=== PATIENT | male | born 1995 | race Caucasian/White ===

== ENCOUNTER 2019-04-19 20:29 | Emergency (ER) | payer SELFPAY ==
[~2019-04-19] VITALS: Ht 172.7 cm; Wt 61.7 kg
[2019-04-19] MEDS ORDERED: IV NORMAL SALINE 1,000ML 1,000 ML IV ONE (20:45)
[2019-04-19] MEDS ORDERED: ONDANSETRON PF 4 MG/2 ML VIAL. IV ONE ×2 (20:45→21:00)
[2019-04-19] MEDS ORDERED: LOPERAMIDE 2 MG CAPSULE PO ONE (21:00)
--- NOTE | 2019-04-19 21:04 | PHYS DOC ---
Past History Past Medical History: No Pertinent History Past Surgical History: No Surgical History Alcohol Use: None Drug Use: None Adult General Chief Complaint Chief Complaint: NAUSEA/VOMITING/DIARRHEA HPI HPI 23-year-old male presents with sudden onset of nausea, vomiting, and diarrhea. This started a couple hours prior to arrival. The patient is concerned because he is never had such violent vomiting and diarrhea. He is concerned about dehydration. The patient has been eating food at a local homeless [facility] and started gets sick after eating a meal. His brother was also sick and went to another hospital earlier today and was just diagnosed with dehydration. The patient and his family are unsure if anyone else usp that is sick. Believe there was a long delay with food sitting out. I cannot be sure. Patient is unable to keep down any liquids or solids. He had both vomiting and diarrhea in the ED. He has some diffuse periumbilical pain that started after the vomiting. He denies blood in his emesis or stool. Review of Systems Review of Systems Constitutional: Denies fever or chills [] Eyes: Denies change in visual acuity, redness, or eye pain [] HENT: Denies nasal congestion or sore throat [] Respiratory: Denies cough or shortness of breath [] Cardiovascular: No additional information not addressed in HPI [] GI: abdominal pain, nausea, vomiting, diarrhea [] : Denies dysuria or hematuria [] Musculoskeletal: Denies back pain or joint pain [] Integument: Denies rash or skin lesions [] Neurologic: Denies headache, focal weakness or sensory changes [] Endocrine: Denies polyuria or polydipsia [] All other systems were reviewed and found to be within normal limits, except as documented in this note. Current Medications Current Medications Current Medications Medications (Trade) Dose Ordered Sig/Jemima Start Time Stop Time Status Last Admin Dose Admin Loperamide HCl (Imodium) 4 mg 1X ONCE 04/19/19 21:00 04/19/19 21:01 UNV Ondansetron HCl (Zofran) 4 mg 1X ONCE 04/19/19 20:45 04/19/19 20:54 DC 04/19/19 20:51 4 MG Sodium Chloride 1,000 ml @ 1,000 mls/hr 1X ONCE 04/19/19 20:45 04/19/19 21:44 04/19/19 20:51 1,000 MLS/HR Allergies Allergies Allergies Coded Allergies Type Severity Reaction Last Updated Verified No Known Drug Allergies 04/19/19 No Physical Exam Physical Exam Constitutional: Well developed, well nourished, mild acute distress, non-toxic appearance. [] HENT: Normocephalic, atraumatic, bilateral external ears normal, oropharynx moist, no oral exudates, nose normal. [] Eyes: PERRLA, EOMI, conjunctiva normal, no discharge. [] Neck: Normal range of motion, no tenderness, supple, no stridor. [] Cardiovascular:Heart rate regular rhythm, no murmur [] Lungs & Thorax: Bilateral breath sounds clear to auscultation [] Abdomen: Bowel sounds normal, soft, mild periumbilical tenderness, no masses, no pulsatile masses. [] Skin: Warm, dry, no erythema, no rash. [] Back: No tenderness, no CVA tenderness. [] Extremities: No tenderness, no cyanosis, no clubbing, ROM intact, no edema. [] Neurologic: Alert and oriented X 3, normal motor function, normal sensory function, no focal deficits noted. [] Psychologic: Affect normal, judgement normal, mood normal. [] Current Patient Data Vital Signs Vital Signs Date Time Temp Pulse Resp B/P (MAP) Pulse Ox O2 Delivery O2 Flow Rate FiO2 04/19/19 20:58 99.1 120 16 96 Room Air EKG EKG [] Radiology/Procedures Radiology/Procedures [] Course & Med Decision Making Course & Med Decision Making Pertinent Labs and Imaging studies reviewed. (See chart for details) The patient's labs are unremarkable. He is requiring milligrams Zofran IV as well as 10 mg of Compazine IV for his nausea and vomiting. I've also given 4 mg of loperamide. His diarrhea improved. We've given a liter normal saline. I believe the patient has a viral gastroenteritis though mild food poisoning cannot be excluded. I will discharge him with Zofran and Compazine prescriptions. He is stable for discharge at this time. [] Dragon Disclaimer Dragon Disclaimer This electronic medical record was generated, in whole or in part, using a voice recognition dictation system. Departure Departure: Impression: Primary Impression: Viral gastroenteritis Disposition: HOME, SELF-CARE Condition: STABLE Referrals: PCP,NO (PCP) Patient Instructions: Viral Gastroenteritis, [id number] Scripts Prochlorperazine Maleate (Compazine) 10 Mg Tablet 10 MG PO Q6HRS PRN for VOMITING, #20 TAB Prov: CASSIE NARVAEZ DO 04/19/19 Ondansetron (ONDANSETRON ODT) 4 Mg Tab.rapdis 1 TAB PO PRN Q6-8HRS PRN for VOMITING, #16 TAB Prov: CASSIE NARVAEZ DO 04/19/19 CASSIE NARVAEZ DO Apr 19, 2019 21:04
[2019-04-19 21:12] LABS: BASO % 0 % (0-3); EOS # 0.1 x10^3/uL (0.0-0.7); EOS % 1 % (0-3); HEMATOCRIT 46.2 % (39.0-53.0); HEMOGLOBIN 16.2 g/dL (13.0-17.5); LYMPH # 0.4 x10^3/uL (1.0-4.8); LYMPH % 5 % (24-48); MEAN CORPUSCULAR HEMOGLOBIN 32 pg (25-35); MEAN CORPUSCULAR HGB CONC 35 g/dL (31-37); MEAN CORPUSCULAR VOLUME 91 fL (79-100); MONO # 0.6 x10^3/uL (0.0-1.1); MONO % 7 % (0-9); NEUT % 87 % (31-73); PLATELET COUNT 213 x10^3/uL (140-400); RED CELL DISTRIBUTION WIDTH 13.3 % (11.5-14.5); WHITE BLOOD COUNT 9.1 x10^3/uL (4.0-11.0)
[2019-04-19 21:23] LABS: AMORPHOUS SEDIMENT,UR PRESENT /HPF; BACTERIA,URINE 0 /HPF (0-FEW); BILIRUBIN,URINE NEG (NEG); CLARITY,URINE CLOUDY; COLOR,URINE YELLOW; GLUCOSE,URINE NEG (NEG); NITRITE,URINE NEG (NEG); SQUAMOUS EPITHELIAL CELL,UR OCC /LPF; UROBILINOGEN,URINE 1 mg/dL (0.2 mg/dL)
[2019-04-19 21:25] LABS: ALBUMIN 4.7 g/dL (3.4-5.0); ALBUMIN/GLOBULIN RATIO 1.2 (1.0-1.7); CREATININE 0.9 mg/dL (0.7-1.3); GFR 105.5; POTASSIUM 3.7 mmol/L (3.5-5.1); TOTAL BILIRUBIN 1.1 mg/dL (0.2-1.0); TOTAL PROTEIN 8.6 g/dL (6.4-8.2)
[2019-04-19 21:36] VITALS: BP 135/82
[2019-04-19] MEDS ORDERED: PROCHLORPERAZINE 10 MG/2 ML VIAL. IV ONE (22:15)
[2019-04-19] MEDS ORDERED: ONDA4TAB12 PO (22:18)
[2019-04-19] MEDS ORDERED: PROC10TA57 PO (22:18)
[2019-04-19] MEDS ORDERED: ONDANSETRON 4MG ODT 4TABLET STARTPACK. PO ONE (22:30)
== END 2019-04-19 22:42 | disposition home or self-care (01) ==
LOC: ER 20:29
DX: A08.4 Viral intestinal infection, unspecified (principal); R11.2 Nausea with vomiting, unspecified
CPT/HCPCS: 36415; 80053; 81001; 85025; 96361; 96374; 96375; 99284; J0780; J2405; Q0162; J7030

== ENCOUNTER → 2021-10-08 | Outpatient (CLI) | payer SELFPAY ==
[~2021-10-08] MED LIST: ONDA4TAB12 PO; PROC10TA57 PO
--- NOTE | 2021-10-08 18:57 | RAD ---
Study: XR FINGER(S)_LEFT 2+VIEWS_RT Indication: Thumb pain. Recent injury. Comparison: None. Findings: No displaced fracture. No disarticulation across the thumb MCP or IP joints. Maintained joint spaces. Impression: No dislocation or avulsion injury seen along the thumb. If there is concern for ligamentous injury ev entual MRI could be performed. Electronically signed by: ZACHARY BERNAL MD (10/08/2021 6:55 PM) [facility]
== END ==
LOC: RAD 17:59
PROVIDERS: ATTEND Nurse Practitioner Family
DX: S66.812A Strain of other specified muscles, fascia and tendons at wrist and hand level, left hand, initial encounter (principal); M79.645 Pain in left finger(s); X58.XXXA Exposure to other specified factors, initial encounter; Y93.89 Activity, other specified; Y92.89 Other specified places as the place of occurrence of the external cause; Y99.8 Other external cause status
CPT/HCPCS: 73140